=== PATIENT | male | born 1975 | race Hispanic/Latino ===

== ENCOUNTER → 2024-06-27 | Outpatient (CLI) | payer BC ==
--- NOTE | 2024-06-27 12:16 | HMCIMG ---
MR TIBFIB RIGHT WO HISTORY: Right lower leg pain COMPARISON: None TECHNIQUE: MRI of the right tibia and fibula was performed utilizing multiple pulse sequences in axial, coronal and sagittal planes. Patient was not given contrast through intravenous route. FINDINGS: No evidence of fracture or dislocation is seen. Soft tissue swelling is seen at the medial posterior aspect of the right lower extremity. There is fluid collection noted within the fascial plane of the gastrocnemius and soleus muscle measuring 7 mm in thickness may be related to hematoma. There may be soft tissue swelling in the fingers triangle may be related to tendinosis. If there is any clinical suspicion for MRI of the right ankle. Helpful. IMPRESSION: 1. Findings as described above.
== END | disposition home or self-care (01) ==
LOC: RAH 10:10
PROVIDERS: ATTEND Family Medicine
DX: M79.89 Other specified soft tissue disorders (principal); M79.661 Pain in right lower leg
CPT/HCPCS: 73718